=== PATIENT | male | born 1965 | race Caucasian/White ===

== ENCOUNTER 2016-08-05 12:57 | Inpatient (IN) | payer OTHER ==
[~2016-08-05] VITALS: Ht 180.3 cm; Wt 254.0 kg
[~2016-08-05 12:57] MED LIST: ACTOS30 MG PO; ALBUTEROL SULF8.5 GM IH; ALBUTEROL2.5 MG/3 M IH; BACTROBAN NASAL1 G1 BOTH NARES; CITALOPRAM HBR40 MG PO; CRESTOR5 MG PO; Ecotrin PO; FLORASTOR250 MG PO; GLUCOPHAGE XR,500 MG PO; HYDROCODON-ACE1 EAC7 PO; LEVAQUIN500 MG PO; LEVOTHROID125 MCG PO; LEVOTHYROXINE150 MCG PO; LISINOPRIL-HCT1 EAC3 PO; METFORMIN HCL500 M1 PO; METFORMIN PO; MILLIPRED DP5 MG PO; PERCOCET 5/31 TABLET PO; PREDNISONE5 M1 PO; PREDNISONE50 MG PO; PROVENTIL,2.5 MG/3 M IH; SERTRALINE HCL50 MG PO; SILVADENE20 GM TP; SILVER SULFADIA50 GM TP; TYLENOL ARTHRI650 MG PO; VENTOLIN HFA18 GM IH; VIRTUSSIN AC L473 ML PO; VITAMIN D-32000 UNI2 PO; VITAMIN D32000 UNIT PO; VOLTAREN XR100 MG PO; VOLTAREN75 MG PO; ZESTORETIC,P1 TABLE1 PO; ZITHROMAX Z-PA250 MG PO
[2016-08-05 13:33] LABS: BASOPHIL COUNT 0.1 K/uL (0-0.1); EOSINOPHIL (%) 1.4 % (0-5); EOSINOPHIL COUNT 0.2 K/uL (0-0.3); HEMATOCRIT 38.3 % (38.0-50.0); IMMATURE GRANULOCYTE (%) 0.7 % (0.0-0.7); IMMATURE GRANULOCYTE COUNT 0.1 K/uL; INSTRUMENT ABS NEUTROPHIL CT 10.6 K/uL; LYMPHOCYTE COUNT 1.3 K/uL (1.0-2.8); MCH 28.9 PG (29.0-34.0); MCHC 32.1 G/DL (30.0-36.0); MCV 90.1 FL (86-99); MEAN PLAT.VOLUME 9.6 uM^3 (9.0-12.4); MONOCYTE COUNT 0.8 K/uL (0-0.8); NEUTROPHIL (%) 81.8 % (45-76); NEUTROPHIL COUNT 10.6 K/uL (1.8-6.4); PLATELET COUNT 331 K/uL (156-360); RBC DIS.WIDTH-CV 17.1 % (11.8-14.6); RBC DIS.WIDTH-SD 55.7 % (39-53); RED BLOOD COUNT 4.25 M/uL (4.00-5.50)
[2016-08-05 13:41] LABS: CHLORIDE 105 mEq/L (99-109); POTASSIUM 4.3 mEq/L (3.7-5.4); SODIUM 141 mEq/L (136-147)
[2016-08-05 13:43] LABS: GLUCOSE 154 mg/dL (70-99)
[2016-08-05 13:44] LABS: ANION GAP 16 MEQ/L (2-14)
[2016-08-05 13:47] LABS: GFR ESTIMATE (CALCULATED) 48 mL/min/
[2016-08-05 13:48] LABS: UREA NITROGEN (BUN) 34 mg/dL (9-23)
[2016-08-05 13:54] LABS: TROP-I INTERPRETATION NEGATIVE; TROPONIN-I < 0.01 ng/mL (0.0-0.30)
[2016-08-05 16:03] LABS: POINT-OF-CARE METER ID UU14100415
[2016-08-05 16:06] LABS: D-DIMER ELISA 3.03 mg/L FEU (< 0.57)
[2016-08-05 16:23] LABS: ADD MIUA? YES; BILIRUBIN NEGATIVE; BLOOD NEGATIVE; COLOR YELLOW ((YELLOW)); GLUCOSE (STRIP) NEGATIVE; KETONES NEGATIVE; LEUKOCYTES NEGATIVE; NITRITE NEGATIVE; PROTEIN (STRIP) 30; SPECIFIC GRAVITY 1.019 (1.000-1.030); UROBILINOGEN 0.2 MG/DL (0.2-1.0)
[2016-08-05 16:46] LABS: BACTERIA RARE /HPF; EPITHELIAL CELLS RARE /HPF; MUCUS TRACE /LPF; RED BLOOD CELLS 0-5 /HPF (0-5); WHITE BLOOD CELLS 0-5 /HPF (0-5)
[2016-08-05] MEDS ORDERED: PERCOCET 10/1 TABLET PO (17:05)
[2016-08-05] MEDS ORDERED: BUPROPION XL300 MG PO ×3 (17:08→17:11)
[2016-08-05] MEDS ORDERED: VITAMIN B-12250 MCG PO (17:12)
[2016-08-05] MEDS ORDERED: SPRIX1 EACH BOTH NARES (17:13)
[2016-08-05] MEDS ORDERED: NEURONTIN400 MG PO ×3 (17:13→17:14)
[2016-08-05 22:30] VITALS: BP 111/56
[2016-08-06 00:51] VITALS: BP 111/56
[2016-08-06 00:51] LABS: TROP-I INTERPRETATION NEGATIVE; TROPONIN-I < 0.01 ng/mL (0.0-0.30)
[2016-08-06 04:27] VITALS: BP 118/59
[2016-08-06 05:42] LABS: TROP-I INTERPRETATION NEGATIVE; TROPONIN-I < 0.01 ng/mL (0.0-0.30)
[2016-08-06 06:22] LABS: EOSINOPHIL (%) 2.4 % (0-5); EOSINOPHIL COUNT 0.2 K/uL (0-0.3); HEMATOCRIT 33.6 % (38.0-50.0); IMMATURE GRANULOCYTE (%) 0.3 % (0.0-0.7); INSTRUMENT ABS NEUTROPHIL CT 6.9 K/uL; LYMPHOCYTE COUNT 1.3 K/uL (1.0-2.8); MCH 28.1 PG (29.0-34.0); MCHC 30.4 G/DL (30.0-36.0); MCV 92.6 FL (86-99); MONOCYTE COUNT 0.6 K/uL (0-0.8); NEUTROPHIL (%) 75.4 % (45-76); NEUTROPHIL COUNT 6.9 K/uL (1.8-6.4); RBC DIS.WIDTH-CV 17.2 % (11.8-14.6); RBC DIS.WIDTH-SD 57.2 % (39-53); RED BLOOD COUNT 3.63 M/uL (4.00-5.50); WHITE BLOOD COUNT 9.1 K/uL (4.1-10.2)
[2016-08-06 06:47] LABS: PLAT.SUFFICIENCY ADEQUATE
[2016-08-06 06:49] LABS: PLATELET COUNT 202 K/uL (156-360)
[2016-08-06 07:30] VITALS: BP 135/77
[2016-08-06 07:41] LABS: METH RESISTANT S AUREUS PCR NEGATIVE (NEGATIVE)
[2016-08-06 08:14] LABS: ALKALINE PHOSPHATASE 63 IU/L (3-129); ANION GAP 10 MEQ/L (2-14); CHLORIDE 104 MEQ/L (99-109); DIRECT BILIRUBIN 0.1 mg/dL (0.0-0.3); GFR ESTIMATE (CALCULATED) 57 mL/min/; GLUCOSE 124 mg/dL (70-99); POTASSIUM 4.5 MEQ/L (3.7-5.4); SAMPLE HEMOLYSIS CHECK 0; SAMPLE ICTERIC CHECK 0; SAMPLE LIPEMIA CHECK 0; SODIUM 140 MEQ/L (136-147); TOTAL BILIRUBIN 0.3 MG/DL (0.0-1.0); UREA NITROGEN (BUN) 35 mg/dL (9-23)
[2016-08-06 08:17] LABS: PROBE CHECK PASS; SPECIMEN PROCESSING CONTROL PASS
[2016-08-06] MEDS ORDERED: XARELTO15 MG PO (08:24)
[2016-08-06] MEDS ORDERED: FLUCONAZOLE200 MG PO (08:24)
[2016-08-06 15:59] VITALS: BP 142/83
[2016-08-06 20:01] VITALS: BP 115/53
[2016-08-07] VITALS (10 sets, daily range): BP systolic 106–165; BP diastolic 50–76
[2016-08-08 03:59] VITALS: BP 109/56
[2016-08-08 05:09] LABS: HEMATOCRIT 33.5 % (38.0-50.0); MCH 28.1 PG (29.0-34.0); MCV 90.5 FL (86-99); MEAN PLAT.VOLUME 10.1 uM^3 (9.0-12.4); PLATELET COUNT 195 K/uL (156-360); RBC DIS.WIDTH-CV 16.9 % (11.8-14.6); RBC DIS.WIDTH-SD 55.3 % (39-53); WHITE BLOOD COUNT 7.2 K/uL (4.1-10.2)
[2016-08-08 08:18] VITALS: BP 116/67
[2016-08-08 11:22] VITALS: BP 137/64
[2016-08-08 16:18] VITALS: BP 116/55
[2016-08-08 19:19] VITALS: BP 110/53
[2016-08-08 23:51] VITALS: BP 112/52
[2016-08-09 04:30] VITALS: BP 107/54
[2016-08-09 08:23] VITALS: BP 124/58
[2016-08-09 09:24] LABS: ANION GAP 7 MEQ/L (2-14); CHLORIDE 97 MEQ/L (99-109); GFR ESTIMATE (CALCULATED) > 59 mL/min/; GLUCOSE 154 mg/dL (70-99); POTASSIUM 4.1 MEQ/L (3.7-5.4); SAMPLE HEMOLYSIS CHECK 0; SAMPLE ICTERIC CHECK 0; SAMPLE LIPEMIA CHECK 0; SODIUM 136 MEQ/L (136-147); UREA NITROGEN (BUN) 19 mg/dL (9-23)
[2016-08-09 11:49] VITALS: BP 120/77
[2016-08-09 12:52] LABS: POINT-OF-CARE METER ID UU14149397
[2016-08-09 17:12] LABS: POINT-OF-CARE METER ID UU14149397
[2016-08-09 18:09] VITALS: BP 110/52
[2016-08-09 20:00] VITALS: BP 113/56
[2016-08-09 23:23] VITALS: BP 98/49
[2016-08-10 04:59] VITALS: BP 97/47
[2016-08-10 05:33] LABS: HEMATOCRIT 32.5 % (38.0-50.0); MCH 28.6 PG (29.0-34.0); MCHC 31.7 G/DL (30.0-36.0); MCV 90.3 FL (86-99); MEAN PLAT.VOLUME 9.7 uM^3 (9.0-12.4); PLATELET COUNT 211 K/uL (156-360); RBC DIS.WIDTH-CV 16.5 % (11.8-14.6); RBC DIS.WIDTH-SD 54.4 % (39-53); WHITE BLOOD COUNT 8.5 K/uL (4.1-10.2)
[2016-08-10 05:56] LABS: ANION GAP 8 MEQ/L (2-14); CHLORIDE 98 MEQ/L (99-109); GFR ESTIMATE (CALCULATED) > 59 mL/min/; GLUCOSE 118 mg/dL (70-99); POTASSIUM 4.1 MEQ/L (3.7-5.4); SAMPLE HEMOLYSIS CHECK 0; SAMPLE ICTERIC CHECK 0; SAMPLE LIPEMIA CHECK 0; SODIUM 136 MEQ/L (136-147); UREA NITROGEN (BUN) 18 mg/dL (9-23)
[2016-08-10 08:08] VITALS: BP 108/54
[2016-08-10 11:20] LABS: POINT-OF-CARE METER ID UU14149397
[2016-08-10 12:24] VITALS: BP 114/54
[2016-08-10 16:37] VITALS: BP 118/56
[2016-08-10 19:42] VITALS: BP 106/48
[2016-08-11 00:30] VITALS: BP 122/57
[2016-08-11 03:39] VITALS: BP 120/60
[2016-08-11 08:14] VITALS: BP 112/53
== END 2016-08-11 15:05 | DRG 312 ==
LOC: EME → EDBD 12:57 → EME 12:57 → EDOF 20:16 → 3EAST 20:16
PROVIDERS: Emergency Medicine; Hospitalist; Internal Medicine; Pediatrics; Physician Assistant
DX: R55 Syncope and collapse (principal); B37.9 Candidiasis, unspecified; E66.01 Morbid (severe) obesity due to excess calories; Z68.45 Body mass index [BMI] 70 or greater, adult; E11.42 Type 2 diabetes mellitus with diabetic polyneuropathy; I10 Essential (primary) hypertension; E03.9 Hypothyroidism, unspecified; B35.4 Tinea corporis; M16.12 Unilateral primary osteoarthritis, left hip; G47.33 Obstructive sleep apnea (adult) (pediatric); Z86.14 Personal history of Methicillin resistant Staphylococcus aureus infection; S80.02XA Contusion of left knee, initial encounter; W19.XXXA Unspecified fall, initial encounter; F33.9 Major depressive disorder, recurrent, unspecified; N28.9 Disorder of kidney and ureter, unspecified; S91.109A Unspecified open wound of unspecified toe(s) without damage to nail, initial encounter; B36.9 Superficial mycosis, unspecified; R60.9 Edema, unspecified; E86.0 Dehydration
CPT/HCPCS: 71010; 73030; 73552; 73560; 78582; 80048; 80048 91; 80069; 80076; 81003; 82948; 84484; 85025; 85027; 85379; 85730; 87641; 93005; 93971; 94799; 97530 GO; 97530 GP; 99202; 99281; 99285; A9540; A9567; J1170; J1644; J1815; J2405; J3010; J7030

== ENCOUNTER 2016-09-20 15:48 | Inpatient (IN) | payer OTHER ==
[~2016-09-20] VITALS: Ht 180.3 cm; Wt 270.7 kg
[~2016-09-20 15:48] MED LIST changes: +BUPROPION XL300 MG PO; +FLUCONAZOLE200 MG PO; +NEURONTIN400 MG PO; +PERCOCET 10/1 TABLET PO; +SPRIX1 EACH BOTH NARES; +VITAMIN B-12250 MCG PO; +XARELTO15 MG PO
[2016-09-20 16:56] LABS: EOSINOPHIL (%) 2.5 % (0-5); EOSINOPHIL COUNT 0.3 K/uL (0-0.3); HEMATOCRIT 38.2 % (38.0-50.0); IMMATURE GRANULOCYTE (%) 0.4 % (0.0-0.7); INSTRUMENT ABS NEUTROPHIL CT 7.5 K/uL; LYMPHOCYTE COUNT 1.6 K/uL (1.0-2.8); MCH 28.1 PG (29.0-34.0); MCHC 31.9 G/DL (30.0-36.0); MEAN PLAT.VOLUME 9.6 uM^3 (9.0-12.4); MONOCYTE (%) 7.7 % (3-12); MONOCYTE COUNT 0.8 K/uL (0-0.8); NEUTROPHIL (%) 73.7 % (45-76); NEUTROPHIL COUNT 7.5 K/uL (1.8-6.4); PLATELET COUNT 247 K/uL (156-360); RBC DIS.WIDTH-CV 16.2 % (11.8-14.6); RBC DIS.WIDTH-SD 52.1 % (39-53); RED BLOOD COUNT 4.34 M/uL (4.00-5.50); WHITE BLOOD COUNT 10.2 K/uL (4.1-10.2)
[2016-09-20 17:04] LABS: CHLORIDE 94 mEq/L (99-109); SODIUM 140 mEq/L (136-147)
[2016-09-20 17:06] LABS: GLUCOSE 131 mg/dL (70-99)
[2016-09-20 17:08] LABS: ANION GAP 12 MEQ/L (2-14); TOTAL BILIRUBIN 0.5 mg/dL (0.0-1.0)
[2016-09-20 17:10] LABS: ALKALINE PHOSPHATASE 72 IU/L (3-129); GFR ESTIMATE (CALCULATED) > 59 mL/min/
[2016-09-20 17:11] LABS: UREA NITROGEN (BUN) 18 mg/dL (9-23)
[2016-09-20] MEDS ORDERED: MELOXICAM7.5 MG PO (18:10)
[2016-09-20] MEDS ORDERED: METFORMIN HCL500 MG PO (18:11)
[2016-09-20] MEDS ORDERED: CYANOCOBALAM1000 MCG PO (18:12)
[2016-09-20] MEDS ORDERED: FUROSEMIDE80 MG PO (18:14)
[2016-09-20] MEDS ORDERED: EFFEXOR XR75 MG PO (18:14)
[2016-09-20] MEDS ORDERED: FLORANEX CHE1 TABLET PO (18:14)
[2016-09-20] MEDS ORDERED: METOLAZONE5 MG PO (18:15)
[2016-09-20] MEDS ORDERED: HYDROCHLOROTHIA25 MG PO (18:16)
[2016-09-20] MEDS ORDERED: SYNTHROID50 MCG PO (18:16)
[2016-09-20] MEDS ORDERED: MACROBID100 MG PO (18:17)
[2016-09-20] MEDS ORDERED: PROVENTIL,2.5 MG/3 M IH (18:19)
[2016-09-20 18:24] LABS: ADD MIUA? NO; BILIRUBIN NEGATIVE; BLOOD NEGATIVE; COLOR YELLOW ((YELLOW)); GLUCOSE (STRIP) NEGATIVE; KETONES NEGATIVE; LEUKOCYTES NEGATIVE; NITRITE NEGATIVE; PROTEIN (STRIP) NEGATIVE; SPECIFIC GRAVITY 1.017 (1.000-1.030); UCUL ADDED? NO; UROBILINOGEN 0.2 MG/DL (0.2-1.0)
[2016-09-20 20:20] VITALS: BP 110/58
[2016-09-21 06:46] LABS: EOSINOPHIL (%) 3.5 % (0-5); EOSINOPHIL COUNT 0.2 K/uL (0-0.3); IMMATURE GRANULOCYTE (%) 0.6 % (0.0-0.7); INSTRUMENT ABS NEUTROPHIL CT 4.7 K/uL; LYMPHOCYTE COUNT 1.3 K/uL (1.0-2.8); MCH 28.3 PG (29.0-34.0); MCHC 31.9 G/DL (30.0-36.0); MCV 88.7 FL (86-99); MEAN PLAT.VOLUME 9.4 uM^3 (9.0-12.4); MONOCYTE (%) 8.2 % (3-12); MONOCYTE COUNT 0.6 K/uL (0-0.8); NEUTROPHIL (%) 68.8 % (45-76); NEUTROPHIL COUNT 4.7 K/uL (1.8-6.4); PLATELET COUNT 205 K/uL (156-360); RBC DIS.WIDTH-CV 16.2 % (11.8-14.6); RBC DIS.WIDTH-SD 52.5 % (39-53); RED BLOOD COUNT 4.06 M/uL (4.00-5.50); WHITE BLOOD COUNT 6.9 K/uL (4.1-10.2)
[2016-09-21 07:07] LABS: ANION GAP 11 MEQ/L (2-14); CHLORIDE 93 MEQ/L (99-109); GFR ESTIMATE (CALCULATED) > 59 mL/min/; GLUCOSE 142 mg/dL (70-99); POTASSIUM 2.9 MEQ/L (3.7-5.4); SAMPLE HEMOLYSIS CHECK 0; SAMPLE ICTERIC CHECK 0; SAMPLE LIPEMIA CHECK 0; SODIUM 138 MEQ/L (136-147); UREA NITROGEN (BUN) 16 mg/dL (9-23)
[2016-09-21 07:36] VITALS: BP 108/59
[2016-09-21 14:46] LABS: ANION GAP 13 MEQ/L (2-14); CHLORIDE 96 MEQ/L (99-109); GFR ESTIMATE (CALCULATED) > 59 mL/min/; GLUCOSE 107 mg/dL (70-99); POTASSIUM 3.3 MEQ/L (3.7-5.4); SAMPLE HEMOLYSIS CHECK 0; SAMPLE ICTERIC CHECK 0; SAMPLE LIPEMIA CHECK 0; SODIUM 140 MEQ/L (136-147); UREA NITROGEN (BUN) 15 mg/dL (9-23)
[2016-09-21 15:00] VITALS: BP 114/62
[2016-09-22 06:31] LABS: ANION GAP 8 MEQ/L (2-14); CHLORIDE 97 MEQ/L (99-109); GFR ESTIMATE (CALCULATED) > 59 mL/min/; GLUCOSE 137 mg/dL (70-99); POTASSIUM 3.4 MEQ/L (3.7-5.4); SAMPLE HEMOLYSIS CHECK 0; SAMPLE ICTERIC CHECK 0; SAMPLE LIPEMIA CHECK 0; SODIUM 140 MEQ/L (136-147); UREA NITROGEN (BUN) 15 mg/dL (9-23); VANCOMYCIN, TROUGH 11.9 MCG/ML (10-20)
[2016-09-22 07:36] VITALS: BP 130/58
[2016-09-22] MEDS ORDERED: POTASSIUM CHLO20 ME2 PO (12:23)
[2016-09-22] MEDS ORDERED: LEVAQUIN500 MG PO (12:23)
== END 2016-09-22 15:00 | disposition home or self-care (01) | DRG 603 ==
LOC: EME → EDBD 15:48 → EME 15:48 → 5EAST 17:49 → EDOF 17:49 → 5EAST 19:31
PROVIDERS: Emergency Medicine; Family Medicine
DX: L03.311 Cellulitis of abdominal wall (principal); E87.2 Acidosis; E87.6 Hypokalemia; N39.0 Urinary tract infection, site not specified; I11.0 Hypertensive heart disease with heart failure; I50.9 Heart failure, unspecified; E11.9 Type 2 diabetes mellitus without complications; G40.909 Epilepsy, unspecified, not intractable, without status epilepticus; E03.9 Hypothyroidism, unspecified; G47.33 Obstructive sleep apnea (adult) (pediatric); M19.90 Unspecified osteoarthritis, unspecified site; F32.9 Major depressive disorder, single episode, unspecified; E66.01 Morbid (severe) obesity due to excess calories; Z68.45 Body mass index [BMI] 70 or greater, adult; Z80.1 Family history of malignant neoplasm of trachea, bronchus and lung
CPT/HCPCS: 80048; 80048 91; 80053; 80202; 81003; 83605; 83880; 85025; 87040; 87070; 87205; 94799; 99202; 99281; 99285; J0295; J1650; J3370; J3480; J7030; J7050

== ENCOUNTER 2016-12-10 19:37 | Emergency (ER) | payer OTHER ==
[~2016-12-10] VITALS: Ht 180.3 cm; Wt 257.7 kg
[~2016-12-10 19:37] MED LIST changes: +CYANOCOBALAM1000 MCG PO; +EFFEXOR XR75 MG PO; +FLORANEX CHE1 TABLET PO; +FUROSEMIDE80 MG PO; +HYDROCHLOROTHIA25 MG PO; +MACROBID100 MG PO; +MELOXICAM7.5 MG PO; +METFORMIN HCL500 MG PO; +METOLAZONE5 MG PO; +POTASSIUM CHLO20 ME2 PO; +SYNTHROID50 MCG PO
[2016-12-10 20:22] LABS: HEMATOCRIT 36.1 % (38.0-50.0); MCH 27.3 PG (29.0-34.0); MCHC 31.6 G/DL (30.0-36.0); MCV 86.4 FL (86-99); MEAN PLAT.VOLUME 9.9 uM^3 (9.0-12.4); PLATELET COUNT 240 K/uL (156-360); RBC DIS.WIDTH-CV 17.4 % (11.8-14.6); RBC DIS.WIDTH-SD 54.7 % (39-53); RED BLOOD COUNT 4.18 M/uL (4.00-5.50)
[2016-12-10 20:48] LABS: CHLORIDE 101 mEq/L (99-109); POTASSIUM 4.7 mEq/L (3.7-5.4); SODIUM 138 mEq/L (136-147)
[2016-12-10 20:50] LABS: GLUCOSE 147 mg/dL (70-99)
[2016-12-10 20:51] LABS: TROP-I INTERPRETATION NEGATIVE; TROPONIN-I 0.02 ng/mL (0.0-0.30)
[2016-12-10 20:52] LABS: ANION GAP 12 MEQ/L (2-14)
[2016-12-10 20:54] LABS: GFR ESTIMATE (CALCULATED) > 59 mL/min/
[2016-12-10 20:55] LABS: UREA NITROGEN (BUN) 30 mg/dL (9-23)
[2016-12-10 21:50] VITALS: BP 123/74
== END 2016-12-10 21:55 | disposition home or self-care (01) ==
LOC: EME → EDBD 19:37 → EME 21:55
DX: R07.9 Chest pain, unspecified (principal); I10 Essential (primary) hypertension; E03.9 Hypothyroidism, unspecified; R56.9 Unspecified convulsions
CPT/HCPCS: 71010; 80048; 84484; 85027; 93005; 99281; 99285

== ENCOUNTER 2017-01-20 14:17 | Emergency (ER) | payer OTHER ==
[~2017-01-20] VITALS: Ht 180.3 cm; Wt 256.8 kg
[2017-01-20 16:48] VITALS: BP 110/57
== END 2017-01-20 16:34 | disposition home or self-care (01) ==
LOC: EME 14:17
DX: M25.531 Pain in right wrist (principal); E11.9 Type 2 diabetes mellitus without complications; E66.01 Morbid (severe) obesity due to excess calories; Z79.84 Long term (current) use of oral hypoglycemic drugs; Z79.891 Long term (current) use of opiate analgesic
CPT/HCPCS: 73110; 99281; 99284

== ENCOUNTER 2017-06-15 16:23 | Emergency (ER) | payer OTHER ==
[~2017-06-15] VITALS: Ht 180.3 cm; Wt 282.0 kg
[2017-06-15 17:45] LABS: CHLORIDE 100 mEq/L (99-109); POTASSIUM 4.4 mEq/L (3.7-5.4); SODIUM 137 mEq/L (136-147)
[2017-06-15 17:47] LABS: GLUCOSE 142 mg/dL (70-99)
[2017-06-15 17:50] LABS: CREATININE 1.4 mg/dL (0.6-1.3); GFR ESTIMATE (CALCULATED) 56 mL/min/ (58.99-99999)
[2017-06-15 17:51] LABS: UREA NITROGEN (BUN) 25 mg/dL (9-23)
[2017-06-15 22:36] VITALS: BP 97/63
== END 2017-06-15 22:36 | disposition home or self-care (01) ==
LOC: EME 16:23
PROVIDERS: Emergency Medicine
DX: R60.0 Localized edema (principal); E66.01 Morbid (severe) obesity due to excess calories; I10 Essential (primary) hypertension; E03.9 Hypothyroidism, unspecified; R56.9 Unspecified convulsions; M19.90 Unspecified osteoarthritis, unspecified site; G47.30 Sleep apnea, unspecified; F41.9 Anxiety disorder, unspecified; F32.9 Major depressive disorder, single episode, unspecified; Z79.84 Long term (current) use of oral hypoglycemic drugs; Z79.891 Long term (current) use of opiate analgesic; Z91.040 Latex allergy status
CPT/HCPCS: 80048; 93971; 99281; 99284